=== PATIENT | male | born 1975 ===

== ENCOUNTER 2021-06-10 05:50 | Day surgery (SDC) | payer OTHER | END 2021-06-10 10:05 | disposition home or self-care (01) | LOC: AMB-ENDOS 05:50 → EDBD 13:15 | PROVIDERS: ATTEND Surgery | DX: K29.70 Gastritis, unspecified, without bleeding (principal); K21.9 Gastro-esophageal reflux disease without esophagitis; K44.9 Diaphragmatic hernia without obstruction or gangrene ==